=== PATIENT | female | born 1995 | race Two or more races ===

== ENCOUNTER 2018-10-15 13:21 | Day surgery (SDC) | payer OTHER ==
[~2018-10-15] VITALS: Ht 165.1 cm; Wt 62.5 kg
--- NOTE | 2018-10-15 14:45 | PREAC ---
Date/Time of Note Date/Time of Note DATE: 10/15/18 TIME: 14:44 Anesthesia Eval and Record Evaluation Time Pre-Procedure Interview DATE: 10/15/18 TIME: 14:44 Age 23 Sex female NPO: 8 hrs Preoperative diagnosis GERD, FAMILY HISTORY OF GASTRIC CANCER Planned procedure EGD Past Medical History Past Medical History: Includes GI: GERD Surgery & Anesthesia Issues No known issue Meds Anticoagulation: No Beta Ric within 24 hr: No Reason Beta Ric not given: Pt. not on B-Ric Meds reviewed: Yes Allergies Allergies Reviewed: Yes Labs/Studies Labs Reviewed: Reviewed by anesthesiologist test: Negative Pre-procedure Exam Airway: Adequate mouth opening, Adequate thyromental dist Mallampati: Mallampati II Teeth: Normal Lung: Normal Heart: Normal ASA Physical Status ASA physical status: 1 Emergency: None Planned Anesthetic General/MAC: MAC Planned Pain Management Parenteral pain med Pre-operative Attestations Prior to commencing anesthesia and surgery, the patient was re-evaluated, there was verification of: *The patient's identity *The results of appropriate recent lab work and preoperative vital signs *The above evaluation not changing prior to induction *Anesthetic plan, risk benefits, alternative and complications discussed with patient/family; questions answered; patient/family understands, accepts and wi shes to proceed. Theodore Brothers M.D. Oct 15, 2018 14:45
[2018-10-15 14:54] VITALS: Ht 165.1 cm; Wt 62.5 kg
[2018-10-15] MEDS ORDERED: OXYCODONE/ACETAMINOPHEN (5/325) TAB PO PRN ×2 (15:00)
[2018-10-15] MEDS ORDERED: FENTAnyl 50 MCG/ML VIAL IV PRN ×3 (15:00)
[2018-10-15] MEDS ORDERED: ONDANSETRON 4 MG INJ IV PRN (15:00)
[2018-10-15] MEDS ORDERED: IPRATROPIUM (NEB) 0.5 MG/2.5 ML AMP HHN PRN (15:00)
[2018-10-15] MEDS ORDERED: ALBUTEROL 0.083% (NEB) 2.5 MG/3 ML AMP HHN PRN (15:00)
[2018-10-15] MEDS ORDERED: HYDROmorphONE 1 MG/5 ML IV SYRINGE IV PRN ×3 (15:00)
[2018-10-15] MEDS ORDERED: LABETALOL HCL 20MG INJ IV PRN (15:00)
[2018-10-15] MEDS ORDERED: MIDAZOLAM 1 MG/ML 2 ML INJ IV PRN (15:00)
[2018-10-15] MEDS ORDERED: DIPHENHYDRAMINE 50 MG INJ IV PRN (15:00)
[2018-10-15] MEDS ORDERED: EPHEDrine SULFATE 50 MG/5 ML SYG IV PRN (15:00)
[2018-10-15] MEDS ORDERED: TRIMETHOBENZAMIDE 100 MG/ML VIAL IM PRN (15:00)
[2018-10-15] MEDS ORDERED: MEPERIDINE 25 MG INJ IV PRN (15:00)
[2018-10-15] MEDS ORDERED: hydrALAzine 20 MG INJ IV PRN (15:00)
[2018-10-15] MEDS ORDERED: FENTAnyl 50 MCG/ML VIAL ONE (15:18)
[2018-10-15] MEDS ORDERED: LIDOCAINE 100 MG SYRINGE ONE (15:18)
[2018-10-15] MEDS ORDERED: PROPOFOL 20 ML ONE (15:18)
[2018-10-15 15:20] VITALS: BP 129/77; PULSE 121; RESP 18
--- NOTE | 2018-10-15 15:36 | PAC ---
Date/Time of Note Date/Time of Note DATE: 10/15/18 TIME: 15:35 Post-Anesthesia Notes Post-Anesthesia Note Last documented vital signs hr;79 rr:14 bp:114/52 temp:98.4 Activity: WNL Respiratory function: WNL Cardiovascular function: WNL Mental status: Baseline Pain reasonably controlled: Yes Hydration appropriate: Yes Nausea/Vomiting absent: Yes Theodore Brothers M.D. Oct 15, 2018 15:36
[2018-10-15 16:01] VITALS: BP 100/61; PULSE 72; RESP 17
== END 2018-10-15 16:33 | disposition home or self-care (01) ==
LOC: GIL 13:21
PROVIDERS: ATTEND Internal Medicine Gastroenterology
DX: K21.0 Gastro-esophageal reflux disease with esophagitis (principal); K29.00 Acute gastritis without bleeding
CPT/HCPCS: 43239; 84703; 88305; 88312; J2001; J3010; Z7610